=== PATIENT | female | born 1960 | race Caucasian/White ===

== ENCOUNTER 2016-10-22 14:22 | Emergency (ER) | payer BC ==
[2016-10-22] MEDS ORDERED: FAMOTIDINE 20 MG/50 ML IVPB 50 ML IVPB ONE (14:25)
[2016-10-22] MEDS ORDERED: methylPREDNISolone NA SUCC 125 MG/2 ML VIAL IVPB ONE (14:25)
--- NOTE | 2016-10-22 14:25 | PDOC ---
History of Present Illness - General History Source: Patient Exam Limitations: No Limitations - History of Present Illness Initial Comments: 10/22/16 14:45 The patient is a 56 year old female, with a significant past medical history of hypoglycemia, who presents to the emergency department sent by PCP for evaluation of allergic reaction at approximately 12:45. The patient reports she went out for lunch and tried a couscous salad with oranges and parsley. 5 minutes after consuming the salad, the patient reports swelling of her lips and paresthesias in the roof of her mouth. At the time, the patient reports taking 25 mg of benadryl with minimal relief. Patient reports visting her PCP, Dr. Merritt , who suggested the patient present to the ED for evaluation. Patient reports taking another 25 mg of benadryl with minimal relief. Since then, she reports worsening chills, body shakes, and vertigo. The patient reports associated nausea and dry heaving, but denies any vomiting, diarrhea, or constipation. She denies any hives, throat swelling, chest pain, shortness of breath, diaphoresis , or palpitations. She reports she has not eaten lunch today. She denies any fever, cough, headache, or dizziness. She denies any recent travel or sick contacts. Allergies: Eggplant, artichoke, chickpeas, bee venom, toradol Past Surgical History: Elbow surgery. Social History: Non smoker. No ETOH or drug use PCP: Dr. Merritt. <Jerardo Palacios - Last Filed: 10/22/16 14:52> - General History Source: Patient Exam Limitations: No Limitations <Laila Benitez - Last Filed: 10/24/16 07:53> - General Chief Complaint: Allergic Reaction Stated Complaint: allergic reaction Time Seen by Provider: 10/22/16 14:24 Past History <Jerardo Palacios - Last Filed: 10/22/16 14:52> <Laila Benitez - Last Filed: 10/24/16 07:53> - Past Medical History Allergies/Adverse Reactions: Allergies Allergy/AdvReac Type Severity Reaction Status Date / Time artichoke Allergy Verified 10/22/16 15:29 bee venom protein (honey bee) Allergy Verified 10/22/16 15:29 coconut oil Allergy Verified 10/22/16 15:29 ketorolac tromethamine Allergy Verified 10/22/16 15:29 [From Toradol] meperidine HCl [From Demerol] Allergy Verified 10/22/16 15:29 naproxen Allergy Verified 10/22/16 15:29 peas Allergy Verified 10/22/16 15:29 Tetracyclines Allergy Verified 10/22/16 15:29 Home Medications: Ambulatory Orders Famotidine [Pepcid] 20 mg PO DAILY #4 tablet 10/22/16 Prednisone [Deltasone -] 60 mg PO DAILY #12 tablet 10/22/16 Review of Systems - Review of Systems Able to Perform ROS?: Yes Comments:: 10/22/16 14:45 GENERAL/CONSTITUTIONAL: Yes: +chills, +body shakes. No: fever, weakness, loss of appetite. HEAD, EYES, EARS, NOSE AND THROAT: Yes: +lip swelling, +throat paresthesias. No : change in vision, ear pain, discharge, sore throat, throat swelling. CARDIOVASCULAR: No: chest pain, lightheadedness, palpitations, syncope RESPIRATORY: No: cough, shortness of breath, wheezing, hemoptysis, stridor. GASTROINTESTINAL: Yes: +nausea, +dry heaving. No: vomiting, abdominal cramping, diarrhea, rectal bleeding, constipation. GENITOURINARY: No: dysuria, hematuria, frequency, urgency, flank pain. MUSCULOSKELETAL: No: back pain, neck pain, joint pain, muscle swelling or pain SKIN AND BREASTS: No: lesions, pallor, rash or easy bruising. NEUROLOGIC: Yes: + vertigo, +paresthesias in the throat. No: headache,weakness ENDOCRINE: No: unexplained weight gain or loss HEMATOLOGIC/LYMPHATIC: No: anemia, easy bleeding, swelling nodes <Palacios,Giomilsy - Last Filed: 10/22/16 14:52> *Physical Exam - Physical Exam Comments: 10/22/16 14:46 GENERAL: The patient is tremulous on exam. Complaining of vertigo. HEAD: Normal with no signs of trauma. EYES: PERRLA, EOMI, sclera anicteric, conjunctiva clear. No nystagmus. ENT: Ears normal, nares patent, oropharynx clear without exudates. Moist mucous membranes. Uvula midline, no edema. NECK: Normal range of motion, supple without lymphadenopathy, JVD, or masses. LUNGS: Breath sounds equal, clear to auscultation bilaterally. No wheezes, and no crackles. HEART:Regular rate and rhythm, normal S1 and S2 without murmur, rub or gallop. ABDOMEN: Soft, nontender, normoactive bowel sounds. No guarding, no rebound. EXTREMITIES: Normal range of motion, no edema. No clubbing or cyanosis. No erythema, or tenderness. NEUROLOGICAL: No ataxia. Cranial nerves II through XII grossly intact. Normal speech. No focal neurological deficits. MUSCULOSKELETAL: Right hand strength is 5/5. Left hand is weaker than right but this is a chronic finding. Back non-tender to palpation, no CVA tenderness. SKIN: Warm, Dry, normal turgor, no rashes or lesions noted. <Jerardo Palacios - Last Filed: 10/22/16 14:52> Heart Score/ECG Review #1 ECG reviewed & interpreted by me at: 19:03 General ECG Interpretation: Sinus Rhythm, Normal Rate, Normal Intervals, No acute ischemic changes 10/22/16 19:03 Junctional rhythm? 10/22/16 19:13 #2 ECG reviewed & interpreted by me at: 19:13 General ECG Interpretation: Sinus Rhythm, Normal Rate, Normal Intervals, No acute ischemic changes 10/22/16 19:13 shortened pr NO delta wave <Laila Benitez - Last Filed: 10/24/16 07:53> ED Treatment Course - LABORATORY CBC & Chemistry Diagram: 10/22/16 15:00 10/22/16 15:00 <Laila Benitez - Last Filed: 10/24/16 07:53> Medical Decision Making - Medical Decision Making 10/22/16 14:24 A portion of this note was documented by scribe services under my direction. I have reviewed the details of the note, within reason, and agree with the documentation with the following case summary and management plan written by me. Nursing documentation reviewed and incorporated into medical decision making 10/22/16 17:12 This is a 56 yo F who was brought in by a friend after severe allergic reaction She has a prior history of allergic reaction to multiple things - chickpeas, coconut, bee stings She was waiting on line for her pasta lunch and was offered something to eat which she cleared with the staff Pt states that she then noted tingling in her soft pallate and lips She took Benadryl 25mg po She was seen by Dr René Cueto who assessed her and thought that her allergic reaction was severe and gave her an additional does of Benadryl Pt was sent to the ER because she became nauseous and was tremulous On examination: Pt is tremulous 10/22/16 18:23 Laboratory Tests 10/22/16 10/22/16 15:00 15:00 WBC 8.1 Hgb 12.9 Hct 36.5 Plt Count 244 Neutrophils % 61.2 Lymphocytes % 28.3 Sodium 132 L Potassium 3.6 Chloride 99 Carbon Dioxide 27 BUN 12 Creatinine 0.8 Random Glucose 89 10/22/16 18:23 Pt states she feels better She states she would like to go home She feels "wiped out" She denies pain of any kind Will repeat EKG as her initial EKG shows a junctional rhythm 10/22/16 18:33 EKG: sinus rhythm <Laila Benitez - Last Filed: 10/24/16 07:53> *DC/Admit/Observation/Transfer - Attestations Scribe Attestion: 10/22/16 14:47 Documentation prepared by Jerardo Palacios, acting as medical affairs specialist for Laila Benitez MD. <Jerardo Palacios - Last Filed: 10/22/16 14:52> - Discharge Dispostion Admit: No <Laila Benitez - Last Filed: 10/24/16 07:53> Diagnosis at time of Disposition: Allergic reaction caused by a drug Qualifiers: Encounter type: initial encounter Qualified Code(s): T78.40XA - Allergy, unspecified, initial encounter - Discharge Dispostion Disposition: HOME Condition at time of disposition: Stable - Prescriptions Prescriptions: Prednisone [Deltasone -] 60 mg PO DAILY #12 tablet Famotidine [Pepcid] 20 mg PO DAILY #4 tablet - Patient Instructions Printed Discharge Instructions: DI for Adverse Drug Reaction -- Allergic Additional Instructions: Thank you for coming in to the ER today I am so sorry this happened Please return to the ER for any other concerns or complaints Please monitor yourself for continued allergic reaction symptoms Please follow up with your primary care physician within 1 week Please avoid using benadryl 50 mg
[2016-10-22] MEDS ORDERED: HEMOQUE TEST 1 EACH EACH ONE ×2 (14:38→15:43)
[2016-10-22] MEDS ORDERED: ONDANSETRON 4 MG/2 ML VIAL IVPUSH ONE (14:50)
[2016-10-22 14:56] VITALS: TEMP 98; BMI 23.3
[2016-10-22 15:24] LABS: BASOPHIL 1.3 % (0-2.0); MCH 31.2 pg (25.7-33.7); MCHC 35.4 g/dl (32.0-36.0); MEAN CELL VOLUME 88.3 fl (80-96); MEAN PLT VOLUME 8.9 fl (7.5-11.1); NEUTROPHILS 61.2 % (42.8-82.8); PLATELET COUNT 244 K/MM3 (134-434); RDW 11.4 % (11.6-15.6); WHITE BLOOD COUNT 8.1 K/mm3 (4.0-10.8)
[2016-10-22 15:29] LABS: ALBUMIN 4.5 g/dl (3.5-5.0); ALK PHOS 76 U/L (32-92); ANION GAP 6 (8-16); BILIRUBIN,TOTAL 0.6 mg/dl (0.2-1.0); CALCIUM 9.4 mg/dl (8.4-10.2); CO2 27 mmol/L (22-28); CREATININE 0.8 mg/dl (0.6-1.3); GLUCOSE,RANDOM 89 mg/dl (74-106); SGOT/AST 23 U/L (10-42); SGPT/ALT 23 U/L (10-40)
[2016-10-22 19:07] VITALS: BP 112/79; PULSE 87
--- NOTE | 2016-10-24 18:28 | EKG ---
Test Reason : Blood Pressure : / mmHG Vent. Rate : 066 BPM Atrial Rate : 066 BPM P-R Int : 102 ms QRS Dur : 066 ms QT Int : 402 ms P-R-T Axes : 014 073 063 degrees QTc Int : 421 ms SINUS RHYTHM WITH SHORT MN WHEN COMPARED WITH ECG OF 22-OCT-2016 15:23, SINUS RHYTHM HAS REPLACED JUNCTIONAL RHYTHM Confirmed by MD KENAN, YUE ([id number]) on 10/24/2016 6:28:03 PM Referred By: ADELA GU Confirmed By:YUE GRAYSON MD
--- NOTE | 2016-10-24 18:28 | EKG ---
Test Reason : Blood Pressure : / mmHG Vent. Rate : 069 BPM Atrial Rate : 070 BPM P-R Int : 000 ms QRS Dur : 064 ms QT Int : 404 ms P-R-T Axes : 000 081 072 degrees QTc Int : 432 ms Likely SR NO PREVIOUS ECGS AVAILABLE Confirmed by MD KENAN, YUE ([id number]) on 10/24/2016 6:28:24 PM Referred By: ADELA GU Confirmed By:YUE GRAYSON MD
== END 2016-10-22 19:07 | disposition home or self-care (01) ==
LOC: FER 14:22
PROC: 3E033GC Introduction of Other Therapeutic Substance into Peripheral Vein, Percutaneous Approach (ICD-10-PCS; principal; 2016-10-22)
DX: T78.40XA Allergy, unspecified, initial encounter (principal); E16.2 Hypoglycemia, unspecified
CPT/HCPCS: 36415; 80053; 85025; 93005; 99283-25

== ENCOUNTER 2017-12-31 15:40 | Emergency (ER) | payer BC ==
[2017-12-31 15:58] VITALS: BMI 22.4
--- NOTE | 2017-12-31 16:35 | PDOC ---
History of Present Illness - General History Source: Patient Exam Limitations: No Limitations - History of Present Illness Initial Comments: 12/31/17 19:01 The patient is a 57 year old female, with a significant past medical history of splenomegaly, who presents to the emergency department with increasing sharp, stabbing pain to her left back/flank radiating to her lower back and anteriorly since this morning. She reports associated nausea right now, but denies vomiting. She states she was seated at work when she developed pain around 11AM. She states she tried to work through the pain and then reportedly sat in her car for abut an hour, but did not feel well enough to drive. She states her pain is exacerbated with movement and deep inspiration. She states staying completely still alleviates her pain. She denies taking pain medications. The patient states she does not react well to most pain medications. She also states she was cutting down trees on Thursday, but denies having any back pain on Thursday or . The patient denies chest pain, shortness of breath, headache and dizziness. The patient denies fever, chills, vomit, diarrhea and constipation. The patient denies dysuria, frequency, urgency and hematuria. Allergies: see nursing notes Past surgical history: none reported Social history: denies ETOH or tobacco use <Cleo Issa - Last Filed: 12/31/17 19:28> <Gonsalo Lugo - Last Filed: 12/31/17 19:49> - General Chief Complaint: Pain Stated Complaint: PAIN Time Seen by Provider: 12/31/17 16:18 Past History <Cleo Issa - Last Filed: 12/31/17 19:28> - Past Medical History COPD: No - Suicide/Smoking/Psychosocial Hx Smoking History: Never smoked Have you smoked in the past 12 months: No Information on smoking cessation initiated: No Hx Alcohol Use: No Drug/Substance Use Hx: No Substance Use Type: None <Gonsalo Lugo - Last Filed: 12/31/17 19:49> - Past Medical History Allergies/Adverse Reactions: Allergies Allergy/AdvReac Type Severity Reaction Status Date / Time artichoke Allergy Verified 10/22/16 15:29 bee venom protein (honey bee) Allergy Verified 10/22/16 15:29 coconut oil Allergy Verified 10/22/16 15:29 ketorolac tromethamine Allergy Verified 10/22/16 15:29 [From Toradol] meperidine HCl [From Demerol] Allergy Verified 10/22/16 15:29 naproxen Allergy Verified 10/22/16 15:29 peas Allergy Verified 10/22/16 15:29 Tetracyclines Allergy Verified 10/22/16 15:29 Home Medications: Ambulatory Orders Cyclobenzaprine HCl [Flexeril -] 10 mg PO BID PRN #10 tablet 12/31/17 Review of Systems - Review of Systems Able to Perform ROS?: Yes Comments:: 12/31/17 19:01 CONSTITUTIONAL: No reported: Fever, Chills, Diaphoresis, Generalized Weakness, Malaise, Loss of Appetite HEENT: No reported: Rhinorrhea, Nasal Congestion, Throat Pain, Throat Swelling, Difficulty Swallowing, Mouth Swelling, Ear Pain, Eye Pain, Visual Changes CARDIOVASCULAR: No reported: Chest Pain, Syncope, Palpitations, Irregular Heart Rate, Lightheadedness, Peripheral Edema RESPIRATORY: No reported: Cough, Shortness of Breath, SOB with Exertion, Orthopnea, Wheezing , Stridor, Hemoptysis GASTROINTESTINAL: (+) LUQ Abdominal pain, Nausea, No reported: Abdominal Distension,Vomiting, Diarrhea, Constipation, Melena, Hematochezia GENITOURINARY: No reported: Dysuria, Frequency, Urgency, Hesitancy, Flank Pain, Genital Pain MUSCULOSKELETAL: (+) left flank and left low back pain. No reported: Myalgia, Arthralgia, Joint Swelling, Back pain, Neck Pain SKIN: No reported: Rash, Itching, Pallor HEMEATOLOGIC/IMMUNOLOGIC: No reported: Easy Bleeding, Easy Bruising, Lymphadenopathy, Frequent infections ENDOCRINE: No reported: Unexplained Weight Gain, Unexplained Weight Loss, Heat Intolerance , Cold Intolerance NEUROLOGIC: No reported: Headache, Focal Weakness, Paresthesias, Vertigo, Lightheadedness, Unsteady Gait, Seizure, Mental Status Changes, Incontinence PSYCHIATRIC: No reported: Anxiety, Depression <Cleo Issa - Last Filed: 12/31/17 19:28> *Physical Exam - Vital Signs Last Vital Signs Temp Pulse Resp BP Pulse Ox 98.4 F 114 H 23 134/90 100 12/31/17 15:43 12/31/17 15:43 12/31/17 15:43 12/31/17 15:43 12/31/17 15:43 - Physical Exam Comments: 12/31/17 19:02 GENERAL: The patient is awake, alert, and fully oriented, Nontoxic - in no acute distress. HEAD: Normocephalic, atraumatic. EYES: extraocular movements intact, sclera anicteric, conjunctiva clear. ENT: Normal voice, Moist mucous membranes. NECK: Normal range of motion, supple LUNGS: Breath sounds equal, clear to auscultation bilaterally. No wheezes, no rhonchi, no rales. HEART: (+) tachycardic. Regulr rhythm, without murmur, rub or gallop. ABDOMEN: Soft, nontender, No guarding, no rebound.No CVA tenderness EXTREMITIES: Normal range of motion, no edema. No cyanosis. No erythema, or tenderness. MUSCLOSKELETAL; (+) mildly reproducible tenderness to palpation to left lumbar paraspinal NEUROLOGICAL: No facial assymetry, Normal speech, PSYCH: Normal mood, normal affect. SKIN: Warm, Dry, normal turgor, <Cleo Issa - Last Filed: 12/31/17 19:28> - Vital Signs Last Vital Signs Temp Pulse Resp BP Pulse Ox 98.4 F 114 H 23 134/90 100 12/31/17 15:43 12/31/17 15:43 12/31/17 15:43 12/31/17 15:43 12/31/17 15:43 <Gonsalo Lugo - Last Filed: 12/31/17 19:49> ED Treatment Course - LABORATORY CBC & Chemistry Diagram: 12/31/17 17:13 12/31/17 17:13 - ADDITIONAL ORDERS Additional order review: Laboratory Results 12/31/17 12/31/17 17:13 17:13 Sodium 142 Potassium 4.1 Chloride 104 Carbon Dioxide 27 Anion Gap 11 BUN 13 Creatinine 0.8 Creat Clearance w eGFR > 60 Random Glucose 98 Calcium 9.8 Total Bilirubin 0.6 AST 12 L ALT 20 Alkaline Phosphatase 109 Total Protein 8.1 Albumin 4.4 Urine Color Colorless Urine Appearance Clear Urine pH 6.0 Ur Specific [place] 1.003 Urine Protein Negative Urine Glucose (UA) Negative Urine Ketones Negative Urine Blood Negative Urine Nitrite Negative Urine Bilirubin Negative Urine Urobilinogen Negative Ur Leukocyte Esterase Negative 12/31/17 17:13 RBC 4.51 MCV 89.0 MCHC 34.3 RDW 12.4 MPV 8.2 Neutrophils % 84.0 H Lymphocytes % 10.0 D Monocytes % 5.2 Eosinophils % 0.3 Basophils % 0.5 - RADIOLOGY Radiograph Interpretation: EXAM#: TYPE/EXAM: RESULT: [id number] US/KIDNEY / RENAL US HISTORY PROVIDED: Left flank pain. Real time examination of the kidneys demonstrates the following: The right kidney is somewhat small in size measuring 8.3 x 3.6 x 3.4 cm. The left kidney is normal in size measuring 9.0 x 4.1 x 3.9 cm. They are normal in position and texture with no evidence of hydronephrosis or contour deforming renal masses. There is no sonographic evidence of nephrolithiasis. IMPRESSION: Slightly small right kidney, otherwise normal renal sonogram with no evidence of nephrolithiasis, hydronephrosis or acute pathology. Reported By: Alfonso Brown MD 12/31/171923 - Medications Given in the ED: ED Medications Discontinued Medications Generic Name Dose Route Start Last Admin Trade Name Freq PRN Reason Stop Dose Admin Acetaminophen/Codeine Phosphate 1 tab 12/31/17 16:40 12/31/17 16:48 Tylenol # 3 - PO 12/31/17 16:41 1 tab ONCE ONE Administration Sodium Chloride 1,000 mls @ 1,000 mls/hr 12/31/17 16:38 12/31/17 16:48 Normal Saline - IV 12/31/17 17:37 1,000 mls/hr .Q1H ONE Administration Ibuprofen 400 mg 12/31/17 17:06 12/31/17 17:45 Motrin - PO 12/31/17 17:07 400 mg ONCE ONE Administration <Cleo Issa - Last Filed: 12/31/17 19:28> - LABORATORY CBC & Chemistry Diagram: 12/31/17 17:13 12/31/17 17:13 <Gonsalo Lugo - Last Filed: 12/31/17 19:49> Medical Decision Making - Medical Decision Making 12/31/17 16:35 57y F hx of splenomegaly, presents with sharp stabbing pain in the L lower back with occasionall radiationg around chau L flank. worse with movement. hx of cutting down a tree on thursday, but was fine for 2 days afterwards. pt has not taken any meds yet. Denies cp, sob, vomiting, dysuria, hematuria, diarrhea, melena, trauma. No associated numbness/tingling/weakness, urinary/bowel incontinence exam noted for reporucible tenderness to L paraspainl muscles pt also noted to be tachy to 115 ddx - kidney stones vs. lumbar strain will ck UA, basic labs fluids 12/31/17 19:45 pts labs unremrakble pts UA neg for hematuria US neg for hydro cxr negative for ptx, pna pts pain significantly improved will dc the pt with pmd fu return precautions were discussed suspect muscle strain - will treat with ibuprofen, tylenol, flexeril return precautions ewre discussed <Gonsalo Lugo - Last Filed: 12/31/17 19:49> *DC/Admit/Observation/Transfer - Attestations Scribe Attestion: 12/31/17 19:02 Documentation prepared by Cleo Issa, acting as medical reimbursement manager for Gonsalo Lugo MD, <Cleo Issa - Last Filed: 12/31/17 19:28> - Discharge Dispostion Decision to Admit order: No <Gonsalo Lugo - Last Filed: 12/31/17 19:49> Diagnosis at time of Disposition: Low back strain Qualifiers: Encounter type: initial encounter Qualified Code(s): S39.012A - Strain of muscle, fascia and tendon of lower back, initial encounter - Discharge Dispostion Disposition: HOME Condition at time of disposition: Improved - Referrals Referrals: [facility] [Non Staff, Medical] - - Patient Instructions Printed Discharge Instructions: DI for Back Strain or Sprain Additional Instructions: Use heat on your back for comfort. Take ibuprofen/tylenol every 6 hours for the next 2 days. Then only as needed. Take the flexeril as needed for your pain. Return to the ED if you have worsening pain, fever/chill, numbness/tingling/ weakness, urinary or bowel incontinence. See [facility] in 4-5 days for reevaluation. Print Language: MALAY
[2017-12-31] MEDS ORDERED: SODIUM CHLORIDE 1,000 ML IV ONE (16:38)
[2017-12-31] MEDS ORDERED: ACETAMINOPHEN WITH CODEINE 300MG/30MG TABLET PO ONE (16:40)
[2017-12-31] MEDS ORDERED: ACETAMINOPHEN WITH CODEINE 300MG/30MG TABLET ONE (16:41)
[2017-12-31] MEDS ORDERED: IBUPROFEN 400 MG TABLET (FP) PO ONE ×2 (17:06→17:37)
[2017-12-31 17:25] LABS: URINE APPEARANCE CLEAR; URINE BILIRUBIN NEGATIVE (<2.0 mg/dL); URINE COLOR COLORLESS; URINE GLUCOSE (UA) NEGATIVE (NEGATIVE); URINE KETONE NEGATIVE (NEGATIVE); URINE LEUK ESTERASE NEGATIVE (NEGATIVE); URINE NITRITE NEGATIVE (NEGATIVE); URINE PROTEIN NEGATIVE (NEGATIVE); URINE UROBILINOGEN NEGATIVE mg/dL (0.2-1.0)
[2017-12-31 17:26] LABS: BASO % 0.5 % (0-2.0); EOS % 0.3 % (0-4.5); HEMATOCRIT 40.1 % (32.4-45.2); HEMOGLOBIN 13.8 GM/dL (10.7-15.3); MCH 30.5 pg (25.7-33.7); MCHC 34.3 g/dl (32.0-36.0); MEAN PLT VOLUME 8.2 fl (7.5-11.1); MONO % 5.2 % (3.8-10.2); PLATELET COUNT 278 K/MM3 (134-434); RBC 4.51 M/mm3 (3.60-5.2); RDW 12.4 % (11.6-15.6); WHITE BLOOD COUNT 11.8 K/mm3 (4.0-10.0)
[2017-12-31 18:00] LABS: ALBUMIN 4.4 g/dl (3.4-5.0); ANION GAP 11 MMOL/L (8-16); BLOOD UREA NITROGEN 13 mg/dL (7-18); CALCIUM 9.8 mg/dL (8.5-10.1); CHLORIDE 104 mmol/L (98-107); CO2 27 mmol/L (21-32); CREATININE 0.8 mg/dL (0.55-1.02); GLUCOSE,RANDOM 98 mg/dL (74-106); POTASSIUM 4.1 mmol/L (3.5-5.1); SGOT/AST 12 U/L (15-37); SGPT/ALT 20 U/L (12-78); SODIUM 142 mmol/L (136-145)
[2017-12-31 18:02] LABS: ALK PHOS 109 U/L (45-117); BILIRUBIN,TOTAL 0.6 mg/dL (0.2-1.0); TOT PROT 8.1 g/dl (6.4-8.2)
[2017-12-31 19:59] VITALS: BP 114/76; PULSE 77; TEMP 99.1
== END 2017-12-31 20:19 | disposition home or self-care (01) ==
LOC: JER 15:40
PROC: 3E0337Z Introduction of Electrolytic and Water Balance Substance into Peripheral Vein, Percutaneous Approach (ICD-10-PCS; principal; 2017-12-31)
DX: S39.012A Strain of muscle, fascia and tendon of lower back, initial encounter (principal); X58.XXXA Exposure to other specified factors, initial encounter; Y93.89 Activity, other specified; Y92.89 Other specified places as the place of occurrence of the external cause; Y99.8 Other external cause status
CPT/HCPCS: 36415; 71046-TC-FY; 76775-TC; 80053; 81003; 85025; 99281-25; J7030

== ENCOUNTER 2019-11-21 10:12 | Observation (INO) | payer BC ==
[2019-11-21] MEDS ORDERED: ONDANSETRON 4 MG/2 ML VIAL IVPUSH ONE (11:10)
[2019-11-21] MEDS ORDERED: FAMOTIDINE 20 MG/50 ML IVPB 20 MG/50 ML MG IVPB ONE ×2 (11:10→11:13)
[2019-11-21] MEDS ORDERED: ACETAMINOPHEN 1000 MG/100 ML VIAL (NON FORMULARY) IVPB ONE (11:11)
--- NOTE | 2019-11-21 11:12 | PDOC ---
History of Present Illness - General Chief Complaint: Chest Pain Stated Complaint: CHEST PAIN Time Seen by Provider: 11/21/19 10:41 - History of Present Illness Initial Comments: 11/21/19 11:07 59 years old with no significant past medical history presents to the emergency department with 2-day history of substernal chest pressure nonradiating first episode was on Thursday lasting a few hours then again last night approximately 1 AM worse when it movement and while going to shower comes in waves is now mildly persistent constant associated with some nausea. Symptoms are mild to moderate 5-6 out of 10 nonradiating associated with nausea Past History - Medical History Allergies/Adverse Reactions: Allergies Allergy/AdvReac Type Severity Reaction Status Date / Time artichoke Allergy Verified 12/31/17 19:59 bee venom protein (honey bee) Allergy Verified 12/31/17 19:59 coconut oil Allergy Verified 12/31/17 19:59 eggplant Allergy Verified 11/21/19 11:06 ketorolac tromethamine Allergy Verified 12/31/17 19:59 [From Toradol] meperidine HCl [From Demerol] Allergy Verified 12/31/17 19:59 naproxen Allergy Verified 12/31/17 19:59 Tetracyclines Allergy Verified 12/31/17 19:59 chickpeas Allergy Uncoded 11/21/19 11:06 Home Medications: Ambulatory Orders Aspirin [ASA -] 81 mg PO DAILY 11/21/19 Multivitamin 1 each PO DAILY 11/21/19 COPD: No - Immunization History Immunization Up to Date: Yes - Psycho-Social/Smoking History Smoking History: Never smoked Have you smoked in the past 12 months: No - Substance Abuse Hx (Audit-C & DAST Scrn) How often the patient has a drink containing alcohol: Never Score: In Men: 4 or > Positive; In Women: 3 or > Positive: 0 Screen Result (Pos requires Nsg. Audit-10AR): Negative In the last yr the pt used illegal drug/Rx for NonMed reason: No Score: Yes response is considered Positive: 0 Screen Result (Positive result requires Nsg. DAST-10): Negative Review of Systems - Review of Systems Comments:: 11/21/19 11:09 ROS: A complete review of 10 out of 10 review of systems is taken and is negative apart from what is previously mentioned below and in the HPI. *Physical Exam - Vital Signs Last Vital Signs Temp Pulse Resp BP Pulse Ox 98.3 F 88 20 129/85 100 11/21/19 10:23 11/21/19 10:23 11/21/19 10:23 11/21/19 10:23 11/21/19 10:23 - Physical Exam 11/21/19 11:09 Vitals: Triage Vital signs reviewed General Appearance: No acute distress, well nourished well developed, Head: Atraumatic, Eyes: Pupils equal reactive round, extraocular movement intact Chest Wall: Nontender Cardiac: Regular rate and rhythym, no murmurs, no rubs, no gallops, Lungs: Clear to auscultation bilateral, good air movement bilaterally, Abdomen: Soft, non distended, normal bowel sounds, non tender to palpation Extremities: Full range of motion to all extremities, no cyanosis, clubbing, or edema Skin: Warm and dry, no rashes or lesions, no rash, no petechiae Neuro: AOX3; cranial Nerves 2-12 grossly intact, strength intact to all extremities, sensation intact to all extremities, gait normal Psych: Normal mood, normal affect Heart Score/ECG Review - History History: Moderately suspicious - Electrocardiogram EKG: Normal - Age Age: 45-65 - Risk Factors Risk Factors Heart Score: Yes Positive family hx of cardiac disease Based on the list above the patient has:: 1-2 risk factors - Troponin Troponin: </= normal limit - Score Heart Score - Total: 3 ED Treatment Course - LABORATORY CBC & Chemistry Diagram: 11/22/19 06:22 11/22/19 06:22 - RADIOLOGY Radiology Studies Ordered: Category Date Time Status CXRPORT [CHEST X-RAY PORTABLE*] [RAD] Stat Radiology 11/21/19 10:43 Ordered Medical Decision Making - Medical Decision Making 11/21/19 14:59 Well-appearing no apparent distress however chest pain with minimal exertion No significant cardiac risk factors but moderately suspicious story given exertional component decision made to observe patient overnight for stress echo and cardiology consultation full dose aspirin given Discharge - Discharge Information Problems reviewed: Yes Clinical Impression/Diagnosis: Chest pain Qualifiers: Chest pain type: unspecified Qualified Code(s): R07.9 - Chest pain, unspecified - Follow up/Referral - Patient Discharge Instructions - Post Discharge Activity
[2019-11-21] MEDS ORDERED: ACETAMINOPHEN INJECTION 100 ML IVPB ONE (11:13)
[2019-11-21 11:34] LABS: BASO % 0.6 % (0-2.0); EOS % 0.7 % (0-4.5); HEMOGLOBIN 13.1 GM/dL (10.7-15.3); LYMPH % 18.9 % (8-40); MCH 30.8 pg (25.7-33.7); MCHC 33.7 g/dl (32.0-36.0); MEAN CELL VOLUME 91.4 fl (80-96); MEAN PLT VOLUME 8.5 fl (7.5-11.1); NEUT % 74.8 % (42.8-82.8); PLATELET COUNT 218 K/MM3 (134-434); RBC 4.26 M/mm3 (3.60-5.2); RDW 12.3 % (11.6-15.6); WHITE BLOOD COUNT 6.4 K/mm3 (4.0-10.0)
[2019-11-21 12:05] LABS: ALBUMIN 4.3 g/dl (3.4-5.0); ALK PHOS 88 U/L (45-117); ANION GAP 5 MMOL/L (8-16); BILIRUBIN,TOTAL 0.6 mg/dL (0.2-1); BLOOD UREA NITROGEN 14.7 mg/dL (7-18); CALCIUM 9.4 mg/dL (8.5-10.1); CHLORIDE 108 mmol/L (98-107); CO2 30 mmol/L (21-32); CREATININE 0.9 mg/dL (0.55-1.3); GLUCOSE,RANDOM 96 mg/dL (74-106); POTASSIUM 3.9 mmol/L (3.5-5.1); SGOT/AST 20 U/L (15-37); SGPT/ALT 22 U/L (13-61); SODIUM 142 mmol/L (136-145); TOT PROT 7.3 g/dl (6.4-8.2)
[2019-11-21] MEDS ORDERED: ASPIRIN 81 MG CHEWABLE TABLETS ONE (13:43)
[2019-11-21] MEDS ORDERED: ASPIRIN 81 MG CHEWABLE TABLETS PO ONE (14:25)
--- NOTE | 2019-11-21 15:12 | CON.CARD ---
Consult Consult Specialty:: Cardiology Referred by:: Dr. Lane - MICHELE Reason for Consultation:: Chest pain - History of Present Illness Chief Complaint: Chest pain History of Present Illness: 59 years old woman with a history of GERD and hiatal hernia, had cardiac tests including stress echo 5 years ago for chest pain presents to ED 11/21/19 with 2- day history of substernal chest pressure nonradiating first episode was on Thursday lasting a few hours then again last night approximately 1 AM worse when it movement and while going to shower comes in waves is now mildly persistent constant associated with prolonged palpitation with sensation of rapid heart beats and some nausea. First troponin is normal. - History Source History Provided By: Patient, Medical Record Limitations to Obtaining History: No Limitations - Alcohol/Substance Use Hx Alcohol Use: No - Smoking History Smoking history: Never smoked Have you smoked in the past 12 months: No Home Medications - Allergies Allergies/Adverse Reactions: Allergies Allergy/AdvReac Type Severity Reaction Status Date / Time artichoke Allergy Verified 12/31/17 19:59 bee venom protein (honey bee) Allergy Verified 12/31/17 19:59 coconut oil Allergy Verified 12/31/17 19:59 eggplant Allergy Verified 11/21/19 11:06 ketorolac tromethamine Allergy Verified 12/31/17 19:59 [From Toradol] meperidine HCl [From Demerol] Allergy Verified 12/31/17 19:59 naproxen Allergy Verified 12/31/17 19:59 Tetracyclines Allergy Verified 12/31/17 19:59 chickpeas Allergy Uncoded 11/21/19 11:06 - Home Medications Home Medications: Ambulatory Orders NK [No Known Home Medication] 11/21/19 Review of Systems - Review of Systems Constitutional: reports: No Symptoms Eyes: reports: No Symptoms HENT: reports: No Symptoms Neck: reports: No Symptoms Cardiovascular: reports: Chest Pain, Palpitations Respiratory: reports: No Symptoms Gastrointestinal: reports: No Symptoms Genitourinary: reports: No Symptoms Breasts: reports: No Symptoms Reported Musculoskeletal: reports: No Symptoms Neurological: reports: No Symptoms Endocrine: reports: No Symptoms Hematology/Lymphatic: reports: No Symptoms Psychiatric: reports: No Symptoms Vital Signs: Vital Signs Temperature 98.9 F 11/21/19 14:26 Pulse Rate 73 11/21/19 14:00 Respiratory Rate 18 11/21/19 14:00 Blood Pressure 120/74 11/21/19 14:00 O2 Sat by Pulse Oximetry (%) 98 11/21/19 14:00 General: Well developed. Well nourished. No acute distress. Head: Normocephalic. Atraumatic, Eyes: PERRLA, EOMI. Sclerae anicteric. Conjunctivae clear. Neck: Supple. No JVD. No bruits. Heart: Normal S1, S2: Regular rhythm and rate. No murmur. No gallop or rub. Lungs: Symmetrical air entry. Clear to auscultation. No crackle. No wheezing or rhonchi. Abdomen: Soft. Bowel sound positive. Non tender. No masses. Extremities: No edema. No clubbing or cyanosis. PD 2+, equal bilaterally. Neuro: Intact, no focal findings. AAO X3 - Other Data Labs, Other Data: CBC, BMP 11/21/19 10:30 11/21/19 11:03 Troponin, BNP 11/21/19 11:03 Troponin I < 0.02 Troponin, BNP 11/21/19 11:03 Troponin I < 0.02 Assessment/Plan 59 years old woman with a history of GERD and hiatal hernia, had cardiac tests including stress echo 5 years ago for chest pain presents to ED 11/21/19 with 2- day history of substernal chest pressure with associated prolonged palpitation with sensation of rapid heart beats and some nausea. First troponin is normal. 1) Chest pressure with atypical features: Repeat ECG. Repeat troponin. Stress echo for risk stratification. 2) Palpitation with sensation of rapid heart beats during chest pressure. Admit to tele to rule out arrhythmia. We will follow the patient with you!
--- NOTE | 2019-11-21 15:23 | HP ---
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 The patient has a past surgical history of a tenotomy of her right elbow. The patient reported feeling one episode left sided chest pressure on movement last thrs for two hours. She denies ever having experienced this in the past and endorses tachycardia during these episodes of chest pressure. Ms. Silva reported a second episode of chest pressure on thursday night at 1 am in bed. When she arrived at work this morning (11/21/2019) she was advised to arrive to the [facility] emergency department due to continued symptoms. On admission to the emergency department the patient described the pressure as a 2/10 in intensity and described the pressure as a discomfort consistent on rest. She denies any shortness of breath, radiation to her back, arms, or neck, diaphoresis, vomiting, limb swelling, or dizziness. The patient DOES endorse nausea and contributes the nausea from not having eaten. The patient endorses having a stress test done 5 years ago in an outpatient clinic with normal results. The stress test was done due to epigastric tenderness with diaphoresis. Recent Travel: Negative Social History: Smoking: denies Alcohol: socially Drugs: denies Allergies artichoke Allergy (Verified 12/31/17 19:59) bee venom protein (honey bee) Allergy (Verified 12/31/17 19:59) coconut oil Allergy (Verified 12/31/17 19:59) eggplant Allergy (Verified 11/21/19 11:06) ketorolac tromethamine [From Toradol] Allergy (Verified 12/31/17 19:59) meperidine HCl [From Demerol] Allergy (Verified 12/31/17 19:59) naproxen Allergy (Verified 12/31/17 19:59) Tetracyclines Allergy (Verified 12/31/17 19:59) chickpeas Allergy (Uncoded 11/21/19 11:06) HOME MEDICATIONS: Home Medications Medication Instructions Recorded NK [No Known Home Medication] 11/21/19 REVIEW OF SYSTEMS CONSTITUTIONAL: Absent: fever, chills, diaphoresis, generalized weakness, malaise, loss of appetite, weight change HEENT: Absent: rhinorrhea, nasal congestion, throat pain, throat swelling, difficulty swallowing, mouth swelling, ear pain, eye pain, visual changes CARDIOVASCULAR: Absent: chest pain, syncope, palpitations, irregular heart rate, lightheadedness , peripheral edema RESPIRATORY: Absent: cough, shortness of breath, dyspnea with exertion, orthopnea, wheezing, stridor, hemoptysis PHYSICAL EXAMINATION Vital Signs - 24 hr 11/21/19 11/21/19 11/21/19 10:23 14:00 14:26 Temperature 98.3 F 98.9 F Pulse Rate 88 Pulse Rate [ 73 Apical] Respiratory 20 18 Rate Blood Pressure 129/85 Blood Pressure 120/74 [Right Arm] O2 Sat by Pulse 100 98 Oximetry (%) GENERAL: Awake, alert, and fully oriented, in no acute distress. HEAD: Normal with no signs of trauma. EYES: Pupils equal, round and reactive to light, extraocular movements intact, sclera anicteric, conjunctiva clear. No lid lag. NECK: Normal range of motion, supple without lymphadenopathy, JVD, or masses. LUNGS: Breath sounds equal, clear to auscultation bilaterally. No wheezes, and no crackles. No accessory muscle use. HEART: Regular rate and rhythm, normal S1 and S2 without murmur, rub or gallop. ABDOMEN: Soft, nontender, not distended, normoactive bowel sounds, no guarding, no rebound, no masses. No hepatomegaly or splenomegaly. UPPER EXTREMITIES: 2+ pulses, warm, well-perfused. No cyanosis. No clubbing. No peripheral edema. LOWER EXTREMITIES: 2+ pulses, warm, well-perfused. No calf tenderness. No peripheral edema. NEUROLOGICAL: Cranial nerves II-XII intact. Normal speech. Normal gait. PSYCHIATRIC: Cooperative. Good eye contact. Appropriate mood and affect. Laboratory Results - last 24 hr 11/21/19 11/21/19 10:30 11:03 WBC 6.4 RBC 4.26 Hgb 13.1 Hct 39.0 MCV 91.4 MCH 30.8 MCHC 33.7 RDW 12.3 Plt Count 218 D MPV 8.5 Absolute Neuts (auto) 4.8 Neutrophils % 74.8 Lymphocytes % 18.9 D Monocytes % 5.0 Eosinophils % 0.7 D Basophils % 0.6 Nucleated RBC % 0 Sodium 142 Potassium 3.9 Chloride 108 H Carbon Dioxide 30 Anion Gap 5 L BUN 14.7 Creatinine 0.9 Est GFR (CKD-EPI)AfAm 82.26 Est GFR (CKD-EPI)NonAf 70.98 Random Glucose 96 Calcium 9.4 Total Bilirubin 0.6 AST 20 ALT 22 Alkaline Phosphatase 88 Creatine Kinase 89 Troponin I < 0.02 Total Protein 7.3 Albumin 4.3 TSH 1.56 ASSESSMENT/PLAN: Ms. Silva is a 59F w a glycogen storage disorder and no significant past cardiac history presents to the emergency department after multiple periodic episodes of left sided chest pressure on rest and exertion. #R/O acute coronary syndrome - chest pressure without tenderness to palpation is suspicious for an acute coronary event and should be investigated. - patient has a calculated heart score of 3 putting her risk of MACE to 0.9%- 1.3% - Troponins are negative x 1 will continue to trend - CXR shows no acute pathology - transfer to telemetry - Dr. Hernandez consulted and will administer stress echo in AM - patient NPO after midnight - A1C - Lipid Panel - TSH - normal - will follow up with previous stress echo - EKG shows no significant findings even when compared to previous ekg - continue on home baby aspirin ASA 81mg #dispo - telemetry #DVT ppx - sq heparin Visit type - Emergency Visit Emergency Visit: Yes ED Registration Date: 11/21/19 Care time: The patient presented to the Emergency Department on the above date and was hospitalized for further evaluation of their emergent condition. - New Patient This patient is new to me today: Yes Date on this admission: 11/21/19 - Critical Care Critical Care patient: No ATTENDING PHYSICIAN STATEMENT I saw and evaluated the patient. I reviewed the resident's note and discussed the case with the resident. I agree with the resident's findings and plan as documented. SUBJECTIVE: OBJECTIVE: ASSESSMENT AND PLAN:
--- NOTE | 2019-11-21 15:44 | PN ---
Teaching Attending Note Name of Resident: Jayesh Clay ATTENDING PHYSICIAN STATEMENT I saw and evaluated the patient. I reviewed the resident's note and discussed the case with the resident. I agree with the resident's findings and plan as documented. SUBJECTIVE: 59 y/o F who presents with substernal chest pain. patient states that she has had a few episodes over the last few days. Currently she reports the pain 2/10 in intensity. Describes the pain as Sub-sternal, non radiating worse with exertion. Of note patient reports some palpitations over this time period as well. Patient does not have any other complaints at this time. PMH, PSH, Social hx, ROS as per resident note. OBJECTIVE: Initial Vital Signs Temp Pulse Resp BP Pulse Ox 98.3 F 88 20 129/85 100 11/21/19 10:11/21/19 10:11/21/19 10:23 11/21/19 10:11/21/19 10:23 GENERAL: Awake, alert, and fully oriented, in no acute distress. HEAD: Normal with no signs of trauma. EYES: Pupils equal, round and reactive to light, extraocular movements intact, sclera anicteric, conjunctiva clear. No lid lag. EARS, NOSE, THROAT: Ears normal, nares patent, oropharynx clear without exudates. Moist mucous membranes. NECK: Normal range of motion, supple without lymphadenopathy, JVD, or masses. LUNGS: Breath sounds equal, clear to auscultation bilaterally. No wheezes, and no crackles. No accessory muscle use. HEART: Regular rate and rhythm, normal S1 and S2 without murmur, rub or gallop. ABDOMEN: Soft, nontender, not distended, normoactive bowel sounds, no guarding, no rebound, no masses. No hepatomegaly or splenomegaly. MUSCULOSKELETAL: Normal range of motion at all joints. No bony deformities or tenderness. No CVA tenderness. UPPER EXTREMITIES: 2+ pulses, warm, well-perfused. No cyanosis. No clubbing. Cap refill <2 seconds. No peripheral edema. LOWER EXTREMITIES: 2+ pulses, warm, well-perfused. No calf tenderness. No peripheral edema. NEUROLOGICAL: Cranial nerves II-XII intact. Normal speech. Normal gait. PSYCHIATRIC: Cooperative. Good eye contact. Appropriate mood and affect. SKIN: Warm, dry, normal turgor, no rashes or lesions noted. ASSESSMENT AND PLAN: This is a 59 y/o F with no significant PMh who presents with chest pain Chest Pain: Rule out ACS vs. non-cardiac chest discomfort Admit to medicine Monitor on Tele Serial EKG plan for stress echo in am Appreciate Cardiology recs Continue ASA at this time check lipid panel, A1c, TSH Rest of plan as per resident note
[2019-11-21 17:24] VITALS: BMI 24.8
[2019-11-21 22:53] LABS: CHOLESTEROL 166 mg/dL (50-200); HDL CHOLESTEROL 56 mg/dL (40-60); LDL CHOLESTEROL (ONLY SJRH) 99 mg/dL (5-100); TRIGLYCERIDES 64 mg/dL (0-150)
[2019-11-22 07:28] LABS: BASO % 0.8 % (0-2.0); EOS % 1.9 % (0-4.5); HEMATOCRIT 37.6 % (32.4-45.2); HEMOGLOBIN 12.6 GM/dL (10.7-15.3); LYMPH % 34.8 % (8-40); MCH 30.5 pg (25.7-33.7); MCHC 33.7 g/dl (32.0-36.0); MEAN CELL VOLUME 90.6 fl (80-96); MEAN PLT VOLUME 8.5 fl (7.5-11.1); MONO % 8.6 % (3.8-10.2); NEUT % 53.9 % (42.8-82.8); PLATELET COUNT 193 K/MM3 (134-434); RBC 4.15 M/mm3 (3.60-5.2); RDW 12.3 % (11.6-15.6); WHITE BLOOD COUNT 4.4 K/mm3 (4.0-10.0)
[2019-11-22 07:40] LABS: ALBUMIN 3.5 g/dl (3.4-5.0); ALK PHOS 76 U/L (45-117); ANION GAP 6 MMOL/L (8-16); BILIRUBIN,TOTAL 0.6 mg/dL (0.2-1); BLOOD UREA NITROGEN 15.6 mg/dL (7-18); CALCIUM 8.9 mg/dL (8.5-10.1); CHLORIDE 109 mmol/L (98-107); CO2 27 mmol/L (21-32); CREATININE 0.9 mg/dL (0.55-1.3); GLUCOSE,RANDOM 86 mg/dL (74-106); MAGNESIUM 2.4 mg/dL (1.8-2.4); PHOSPHOROUS 3.2 mg/dL (2.5-4.9); POTASSIUM 4.6 mmol/L (3.5-5.1); SGOT/AST 15 U/L (15-37); SGPT/ALT 21 U/L (13-61); SODIUM 142 mmol/L (136-145); TOT PROT 6.4 g/dl (6.4-8.2)
[2019-11-22 07:42] LABS: N-TERMINAL BNP 64.6 pg/ml (5-125)
--- NOTE | 2019-11-22 09:19 | EKG ---
Test Reason : Blood Pressure : / mmHG Vent. Rate : 080 BPM Atrial Rate : 080 BPM P-R Int : 124 ms QRS Dur : 076 ms QT Int : 366 ms P-R-T Axes : 074 066 048 degrees QTc Int : 422 ms NORMAL SINUS RHYTHM LOW VOLTAGE QRS CANNOT RULE OUT ANTERIOR INFARCT , AGE UNDETERMINED ABNORMAL ECG WHEN COMPARED WITH ECG OF 22-OCT-2016 18:43, NO SIGNIFICANT CHANGE WAS FOUND Confirmed by MD DANIELE, ROSALIND ([id number]) on 11/22/2019 9:19:22 AM Referred By: Confirmed By:ROSALIND SANABRIA MD
[2019-11-22] MEDS ORDERED: ASPIRIN 81 MG CHEWABLE TABLETS PO SCH (10:00)
--- NOTE | 2019-11-22 11:41 | PN ---
Progress Note, Physician Chief Complaint: The patient had sensation of palpitation without recurrent chest pain over night. Tele shows sinus rhythm without tachy or bradyarrhythmia. History of Present Illness: 59 years old woman with a history of GERD and hiatal hernia, had cardiac tests including stress echo 5 years ago for chest pain presents to ED 11/21/19 with 2- day history of substernal chest pressure. VA ruled out. ECG showed no evidence of ischemia. Tele unremarkable. Stress echo pending. - Current Medication List Current Medications: Active Medications Aspirin (Asa -) 81 mg PO DAILY MARITA Last Admin: 11/22/19 09:06 Dose: 81 mg Documented by: - Objective Vital Signs: Vital Signs Temperature 97.5 F L 11/22/19 09:15 Pulse Rate 69 11/22/19 09:15 Respiratory Rate 16 11/22/19 09:15 Blood Pressure 110/51 L 11/22/19 09:15 O2 Sat by Pulse Oximetry (%) 100 11/22/19 09:15 General: Well developed. Well nourished. No acute distress. Head: Normocephalic. Atraumatic, Eyes: PERRLA, EOMI. Sclerae anicteric. Conjunctivae clear. Neck: Supple. No JVD. No bruits. Heart: Normal S1, S2: Regular rhythm and rate. No murmur. No gallop or rub. Lungs: Symmetrical air entry. Clear to auscultation. No crackles. No wheezing or rhonchi. Abdomen: Soft. Bowel sound positive. Non tender. No masses. Extremities: No edema. No clubbing or cyanosis. PD 2+, equal bilaterally. Neuro: Intact, no focal findings. AAO X3. Labs: CBC, BMP 11/22/19 06:22 11/22/19 06:22 Assessment/Plan 59 years old woman with a history of GERD and hiatal hernia, had cardiac tests including stress echo 5 years ago for chest pain presents to ED 11/21/19 with 2- day history of substernal chest pressure. VA ruled out. ECG showed no evidence of ischemia. Tele unremarkable. Stress echo pending. 1) Chest pressure with atypical features: Stress echo for risk stratification pending. 2) Palpitation with sensation of rapid heart beats during chest pressure. Tele unremarkable. No evidence of arrhythmia. We will follow the patient with you!
--- NOTE | 2019-11-22 14:27 | CON.CARD ---
Cardiology Consult (text) - Consultation Consultation Note: Ms. Silva underwent treadmill exercise stress echo this afternoon. She exercised on the treadmill for 9:00 min of Byron protocol. She tolerated the test well without exercise induced chest pain or ECG changes of ischemia. Baseline echocardiogram is normal and there is no exercise induced wall motion abnormality. She had a normal stress echo. Full official report to follow. She can be discharged from cardiac standpoint.
--- NOTE | 2019-11-22 15:00 | ECHO ---
Name: NATASHA SUNG Exam:Exerise Stress Echocardiogram Study Date: 11/22/2019 01:51 PM Age: 59 yrs Reason For Study: R/O ISCHEMIA Height: 62 in Weight: 130 lb BSA: 1.6 m2 Stress Comments Resting heart rate is 96 BPM. Resting BP 123/82. Normal resting electrocardiogram. A treadmill exercise test according to Byron protocol was performed. 9:00 minutes of Byron protocol. Peak heart rate 179 bpm, 109% MPHR. Maximum Heart Rate achieved was > 100% of maximum age-predicted heart rate. Total Stress Time was 9-10 minutes. Exercise was stopped due to fatigue. Left Ventricle The left ventricle is normal in size. The left ventricular wall motion is normal. The left ventricular ejection fraction is normal. Right Ventricle The right ventricle is normal size. The right ventricular wall motion is normal. Atria The left atrium is normal size. The right atrium is normal. Mitral Valve The mitral valve is grossly normal. Aortic Valve The aortic valve is normal in structure and function. Tricuspid Valve The tricuspid valve is not well visualized, but is grossly normal. Pulmonic Valve The pulmonic valve is not well visualized. Exercise Echocardiogram Negative exercise stress echocardiogram, adequate by heart rate criteria, without symptoms, diagnosti c EKG changes or echocardiographic evidence of ischemia. No new wall motion abnormality was noted with exercise. Interpretation Summary Negative exercise stress echocardiogram, adequate by heart rate criteria, without symptoms, diagnosti c EKG changes or echocardiographic evidence of ischemia Reading Physician: MD Mary Chávez 11/22/2019 03:00 PM
--- NOTE | 2019-11-22 15:53 | DS ---
Physical Exam: SUBJECTIVE: Patient seen and examined at bedside awaiting stress echo. Patient has no acute overnight events OBJECTIVE: Vital Signs Period Temp Pulse Resp BP Sys/Catalan Pulse Ox Last 24 Hr 97.5 F-98.5 F 66-80 16-18 99-121/51-73 100-100 PHYSICAL EXAM GENERAL: The patient is awake, alert, and fully oriented, in no acute distress. HEAD: Normal with no signs of trauma. LUNGS: Breath sounds equal, clear to auscultation bilaterally, no wheezes, no crackles, no accessory muscle use. HEART: Regular rate and rhythm, S1, S2 without murmur, rub or gallop. ABDOMEN: Soft, nontender, nondistended, normoactive bowel sounds, no guarding, no rebound, no hepatosplenomegaly, no masses. EXTREMITIES: 2+ pulses, warm, well-perfused, no edema. PSYCH: Normal mood, normal affect. SKIN: Warm, dry, normal turgor, no rashes or lesions noted. LABS Laboratory Results - last 24 hr 11/21/19 11/21/19 11/21/19 13:30 21:15 21:15 WBC RBC Hgb Hct MCV MCH MCHC RDW Plt Count MPV Absolute Neuts (auto) Neutrophils % Lymphocytes % Monocytes % Eosinophils % Basophils % Nucleated RBC % Sodium Potassium Chloride Carbon Dioxide Anion Gap BUN Creatinine Est GFR (CKD-EPI)AfAm Est GFR (CKD-EPI)NonAf POC Glucometer Random Glucose Hemoglobin A1c % 5.5 Calcium Phosphorus Magnesium Total Bilirubin AST ALT Alkaline Phosphatase Troponin I < 0.02 B-Natriuretic Peptide Total Protein Albumin Triglycerides 64 Cholesterol 166 Total LDL Cholesterol 99 HDL Cholesterol 56 COVID-19 ([facility]) Not detected 11/22/19 11/22/19 11/22/19 06:22 06:22 09:06 WBC 4.4 RBC 4.15 Hgb 12.6 Hct 37.6 MCV 90.6 MCH 30.5 MCHC 33.7 RDW 12.3 Plt Count 193 MPV 8.5 Absolute Neuts (auto) 2.4 Neutrophils % 53.9 D Lymphocytes % 34.8 D Monocytes % 8.6 Eosinophils % 1.9 D Basophils % 0.8 Nucleated RBC % 0 Sodium 142 Potassium 4.6 Chloride 109 H Carbon Dioxide 27 Anion Gap 6 L BUN 15.6 Creatinine 0.9 Est GFR (CKD-EPI)AfAm 82.26 Est GFR (CKD-EPI)NonAf 70.98 POC Glucometer 75 Random Glucose 86 Hemoglobin A1c % Calcium 8.9 Phosphorus 3.2 Magnesium 2.4 Total Bilirubin 0.6 AST 15 ALT 21 Alkaline Phosphatase 76 Troponin I < 0.02 B-Natriuretic Peptide 64.6 Total Protein 6.4 Albumin 3.5 Triglycerides Cholesterol Total LDL Cholesterol HDL Cholesterol COVID-19 ([facility]) HOSPITAL COURSE: STRESS ECHO FINDINGS: Negative exercise stress echo cardiogram, adequate heart rate criteria, without symptoms, diagnostic EKG changes or echocardiographic evidence of ischemia. Date of Admission:11/21/19 Ms. Barbara Silva is a 59F w a h/o Gerd, glycogen storage disorder untreated, and ocular migranes with no significant past cardiac history. She presented to the emergency department with a c/o two days of continuous, non-radiating, non- tender left sided chest pressure localized to the left mid clavicular line 6th intercostal space. The patient was advised to arrive to the emergency department where she endorses pressure during rest. Troponins and chest x-ray were both negative. She was seen by Dr. Kyler Hernandez and advised to transfer to telemetry for subsequent stress echo. Troponins were trended and negative x3, and stress echo did not reveal any pathology. The patient was soon therafter discharged and will follow up with her PCP and systems support engineer outpatient. Date of Discharge: 11/22/19 Minutes to complete discharge: 40 Discharge Summary Problems reviewed: Yes Reason For Visit: CHEST PAIN Condition: Stable - Instructions Diet, Activity, Other Instructions: YOUR VISIT: You were admitted to the hospital because of continuous left sided chest pressure While you were here you were evaluated with lab work, blood work, chest x-ray, an stress echocardiography. The stress echocardiography showed normal results and normal function of your heart. You were seen by the [employer] Dr. Kyler Hernandez and will follow up with him in the office. MEDICATIONS: Please continue taking all of your medications as prescribed FOLLOW UP: Please follow up with your primary care provider within 1 week (Ghislaine New) to go over your hospital visit Please follow up with your [employer] Dr. Kyler Hernandez within 1 week to go over your hospital visit as well ADDITIONAL INFORMATION: You are being discharged HOME Please return to the emergency department if you are experiencing any chest pain, sudden shortness of breath, radiating chest pressure, worsening or concerning symptoms. Referrals: Lindsay New [Non Staff, Medical] - 1 Week Kyler Hernandez MD [Staff Physician] - 1 Week Disposition: HOME - Home Medications Comprehensive Discharge Medication List: Ambulatory Orders Aspirin [ASA -] 81 mg PO DAILY 11/21/19 Multivitamin 1 each PO DAILY 11/21/19 This patient is new to me today: No Emergency Visit: Yes ED Registration Date: 11/21/19 Care time: The patient presented to the Emergency Department on the above date and was hospitalized for further evaluation of their emergent condition. Critical Care patient: No - Discharge Referral Referred to [facility] Med P.C.: No ATTENDING PHYSICIAN STATEMENT I saw and evaluated the patient. I reviewed the resident's note and discussed the case with the resident. I agree with the resident's findings and plan as documented. SUBJECTIVE: OBJECTIVE: ASSESSMENT AND PLAN:
--- NOTE | 2019-11-22 15:53 | PN ---
Teaching Attending Note Name of Resident: Jayesh Clay ATTENDING PHYSICIAN STATEMENT I saw and evaluated the patient. I reviewed the resident's note and discussed the case with the resident. I agree with the resident's findings and plan as documented. SUBJECTIVE: Feeling better, no further chest discomfort. No palpitations. OBJECTIVE: Afebrile, Hemodynamicaly Stable. Last Vital Signs Temp Pulse Resp BP Pulse Ox 97.5 F L 69 16 110/51 L 100 11/22/19 09:15 11/22/19 09:15 11/22/19 09:15 11/22/19 09:15 11/22/19 13:00 HEENT - Atraumatic, Normocephalic. Heart - S1, S2, RRR Lungs - clear to auscultation Abdomen - Soft, non-tender. Bowel Sounds normal. Extremities - no edema, no calf tenderness. Neuro - AAO x 3. Tone/Power normal. Laboratory Results - last 24 hr 11/21/19 11/21/19 11/21/19 13:30 21:15 21:15 WBC RBC Hgb Hct MCV MCH MCHC RDW Plt Count MPV Absolute Neuts (auto) Neutrophils % Lymphocytes % Monocytes % Eosinophils % Basophils % Nucleated RBC % Sodium Potassium Chloride Carbon Dioxide Anion Gap BUN Creatinine Est GFR (CKD-EPI)AfAm Est GFR (CKD-EPI)NonAf POC Glucometer Random Glucose Hemoglobin A1c % 5.5 Calcium Phosphorus Magnesium Total Bilirubin AST ALT Alkaline Phosphatase Troponin I < 0.02 B-Natriuretic Peptide Total Protein Albumin Triglycerides 64 Cholesterol 166 Total LDL Cholesterol 99 HDL Cholesterol 56 COVID-19 ([facility]) Not detected 11/22/19 11/22/19 11/22/19 06:22 06:22 09:06 WBC 4.4 RBC 4.15 Hgb 12.6 Hct 37.6 MCV 90.6 MCH 30.5 MCHC 33.7 RDW 12.3 Plt Count 193 MPV 8.5 Absolute Neuts (auto) 2.4 Neutrophils % 53.9 D Lymphocytes % 34.8 D Monocytes % 8.6 Eosinophils % 1.9 D Basophils % 0.8 Nucleated RBC % 0 Sodium 142 Potassium 4.6 Chloride 109 H Carbon Dioxide 27 Anion Gap 6 L BUN 15.6 Creatinine 0.9 Est GFR (CKD-EPI)AfAm 82.26 Est GFR (CKD-EPI)NonAf 70.98 POC Glucometer 75 Random Glucose 86 Hemoglobin A1c % Calcium 8.9 Phosphorus 3.2 Magnesium 2.4 Total Bilirubin 0.6 AST 15 ALT 21 Alkaline Phosphatase 76 Troponin I < 0.02 B-Natriuretic Peptide 64.6 Total Protein 6.4 Albumin 3.5 Triglycerides Cholesterol Total LDL Cholesterol HDL Cholesterol COVID-19 ([facility]) Current Medications Generic Name Dose Route Start Last Admin Trade Name Freq PRN Reason Stop Dose Admin Aspirin 81 mg 11/22/19 10:00 11/22/19 09:06 Asa - PO 81 mg DAILY [facility] Administration Home Medications Medication Instructions Recorded Aspirin [ASA -] 81 mg PO DAILY 11/21/19 Multivitamin 1 each PO DAILY 11/21/19 ASSESSMENT AND PLAN: 59 year old female with history of GERD, Glycogen Storage Disease, Ocular Migraines, presented with chest pain 1. Atypical Chest Pain, no evidence for ACS or cardiac cause. ECG - no acute changes No tele events Troponin neg x 3. Stress Echo negative Cleared by Cardiology for discharge home. Continue Aspirin
[2019-11-22 18:16] VITALS: BP 115/55; PULSE 85; TEMP 98.7
== END 2019-11-22 18:00 | disposition home or self-care (01) ==
LOC: JER 10:12 → JERBED 13:27 → J4S 16:07
PROVIDERS: ADMIT Internal Medicine
PROC: 3E033NZ Introduction of Analgesics, Hypnotics, Sedatives into Peripheral Vein, Percutaneous Approach (ICD-10-PCS; principal; 2019-11-21)
PROC: 3E033GC Introduction of Other Therapeutic Substance into Peripheral Vein, Percutaneous Approach (ICD-10-PCS; 2019-11-21)
DX: R07.9 Chest pain, unspecified (principal); K21.9 Gastro-esophageal reflux disease without esophagitis; E74.09 Other glycogen storage disease; Z86.69 Personal history of other diseases of the nervous system and sense organs; K46.9 Unspecified abdominal hernia without obstruction or gangrene; Z29.9 Encounter for prophylactic measures, unspecified; Z91.030 Bee allergy status; Z91.018 Allergy to other foods
CPT/HCPCS: 36415; 71045-TC-FY; 80053; 80061; 82550; 82962; 83036; 83721; 83735; 83880; 84100; 84443; 84484; 85025; 93005; 93010; 93351; 99285-25; G0378; J0131; U0003